=== PATIENT | male | born 1960 | race Caucasian/White ===

== ENCOUNTER → 2020-03-28 15:17 | Outpatient (CLI) | payer OTHER, MEDICARE, SELFPAY ==
[2020-03-28 17:12] LABS: Prostate Specific Ag Screen 0.7 ng/ml (0.0-4.0)
== END ==
PROVIDERS: Visit Provider Urology
DX: Z12.5 Encounter for screening for malignant neoplasm of prostate (principal)
CPT/HCPCS: 36415; G0103